=== PATIENT | male | born 1965 | race Caucasian/White ===

== ENCOUNTER 2020-10-19 13:19 | Outpatient (CLI) | payer OTHER ==
[2020-10-19 13:55] VITALS: BP 142/90
--- NOTE | 2020-10-19 13:55 | SLEEP CARE CONSULTATION ---
Information from patient questionnaire entered by Tanesha Guevara. I have reviewed and concur with the information entered by Tanesha Guevara. This document represents the service I personally performed and the decisions made by me, Marie Sseay ARNP. History of Present Illness Service Date and Time: 10/19/2020 1319 Reason for Visit: New patient Chief Complaint: reports: Unrefreshed sleep, Snoring, Frequent awakenings at night. denies: Observed pauses in breathing Date of Onset: 1 1/2 - 2 years Usual bedtime: 10-11 pm Time it takes to fall asleep: 15 minutes Snores at night: Yes Observed to quit breathing while asleep: No Sleeps alone due to snoring: No Number of times waking at night: 1-10 Reasons for waking at night: reports: Choking (only a couple times), Snoring, Gasping for air (only a couple times), Other (unknown reason) Toss, Turn, or Twitch while sleeping: No Recalls having dreams: Yes Usually gets out of bed at: 7 am Feels refreshed in the morning: No Morning headache: Yes (sometimes; resolves at 10am; 2 days a week) Sleepy or fatigued during the day: Yes Ever fallen asleep while driving: No Takes day naps: No Prior sleep studies: Yes Year and Where: 2018 - [place], [place] - incomplete Additional HPI information: I had the pleasure of seeing RACHELLE CARDOSO today regarding the possibility of him having a sleep disorder. His current complaints are frequent night awakenings, snoring and unrefreshed sleep. He will wake up feeling tired, have a headache, with mild nausea and just "not feeling good". He will awaken during the night for no apparent reason and then not be able to go back to sleep. He has woken himself with snoring. His had noted this as well but has not observed pauses in breathing while asleep. He has tried the Breathright strips to reduce snoring and he states it helps him to feel better the next day. He did have a home sleep study in the past but he did not sleep much that night. The company tried to set him up on a CPAP but he did not feel it was an accurate test and did not start therapy. His father has snores loudly and has a CPAP. 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 Patient is and lives in [place]. Have you smoked in the past 12 months: No Alcohol use: Yes Alcohol amount and frequency: 1-2 drinks about 5 days a week Caffeine use: Yes Caffeine amount and frequency: 2-3 cups of coffee a day Family History Family history of sleep disordered breathing: Yes Family Hx Sleep Apnea: Father: Snoring, Sleep apnea - Treated Allergies and Home Medications Drug allergies reviewed: Yes (NKDA) Home medication list reviewed: Yes Allergy and home medication list: Lisinopril 10 mg OTC Omeprazole 20 mg Review of Systems Cardiovascular: reports: high blood pressure Gastrointestinal: reports: heartburn, nausea Neurological: reports: fainting or unconsciousness Psychiatric: reports: anxiety Ear/Nose/Throat: denies: tonsillectomy Immunologic: reports: allergies to food or environment (seasonal) Physical Exam Blood Pressure: 142/90 Cuff size: wrist Heart Rate: 76 O2 Saturation: 98 Height: 5 ft 11.5 in Weight: 215 lb Body Mass Index: 29.5 BMI Classification: Overweight Neck circumference: 16.5 (inches) Mouth and throat: normal Soft palate: long Hard palate: normal Uvula: normal Uvula visualization: 100% Mallampati Class I Tongue: enlarged in size with teeth agarwal on lateral edges Tonsils: small Neck: normal w/o lymphadenopathy or thyromegaly Heart: regular rate and rhythm Lungs: clear bilaterally Impression and Plan 1. Suspected Obstructive Sleep Apnea-Hypopnea Syndrome, as suggested by a history of loud and irregular snoring, gasping or choking in sleep, morning headache, frequent awakening during the night, and unrefreshed sleep. Narrow oropharynx and obesity are common predisposing factors for obstructive sleep apnea-hypopnea syndrome. I recommend proceeding to polysomnography to confirm the diagnosis and to assess severity. If the patient has significant sleep disordered breathing, a manual CPAP titration study will also be performed to find the optimal treatment pressure. I informed the patient of what the sleep studies involve and after some discussion, obtained agreement to proceed. The pathophysiology of obstructive sleep apnea-hypopnea syndrome was discussed with the patient and health risks of cardiovascular and cerebrovascular disease if not treated. AAS brochure for obstructive sleep apnea-hypopnea syndrome given and reviewed. Risks of drowsy driving discussed in detail and patient advised to avoid long distance driving and to puller over at the first sign of drowsiness. Patient agreed to plan. * Schedule polysomnography +- manual CPAP titration study and return in 1-2 weeks after the study to discuss result and initiate therapy. * Avoid long distance driving or driving when feeling sleepy. * Avoid alcohol, sedative and muscle relaxant around bedtime. * Attempt to lose weight. * Review instructions provided by trained office staff on how to prepare for the sleep study. * Return for follow-up after sleep study completed. Counseling Topics: Weight loss health impact Visit Type: In Office Time Spent with Patient (minutes): 30 Provider Statement: I spent 100% of the Face to Face Visit with the patient with greater than 50% spent counseling the patient and coordination of care.
== END 2020-10-19 13:20 | disposition home or self-care (01) ==
LOC: SC 13:19
PROVIDERS: ATTEND Nurse Practitioner Family
DX: R06.83 Snoring (principal); R51.9 Headache, unspecified; G47.8 Other sleep disorders; E66.3 Overweight; Z68.29 Body mass index [BMI] 29.0-29.9, adult
CPT/HCPCS: 99203; 99212

== ENCOUNTER 2020-10-24 12:59 | Outpatient (CLI) | payer OTHER | END 2020-10-24 13:00 | disposition home or self-care (01) | LOC: SC 12:59 | PROVIDERS: ATTEND Nurse Practitioner Family | DX: G47.33 Obstructive sleep apnea (adult) (pediatric) (principal); E66.9 Obesity, unspecified; Z68.30 Body mass index [BMI] 30.0-30.9, adult | CPT/HCPCS: 95806 ==

== ENCOUNTER 2020-12-02 11:24 | Outpatient (CLI) | payer OTHER ==
[2020-12-02 12:02] LABS: CALCIUM 9.6 mg/dL (8.5-10.3); CREATININE 1.1 mg/dL (0.6-1.2); POTASSIUM 4.4 mmol/L (3.5-5.0)
== END 2020-12-02 11:25 | disposition home or self-care (01) ==
LOC: LAB 11:24
PROVIDERS: ATTEND Internal Medicine
DX: I10 Essential (primary) hypertension (principal)
CPT/HCPCS: 36415; 80048

== ENCOUNTER 2021-02-02 09:07 | Outpatient (CLI) | payer OTHER ==
[2021-02-02 09:38] LABS: CALCIUM 9.8 mg/dL (8.5-10.3); CREATININE 1.1 mg/dL (0.6-1.2); POTASSIUM 4.3 mmol/L (3.5-5.0)
[2021-02-03 11:36] LABS: HEPATITIS C ANTIBODY NON-REACTIVE (NON-REACTIVE)
== END 2021-02-02 09:08 | disposition home or self-care (01) ==
LOC: LAB 09:07
PROVIDERS: ATTEND Internal Medicine
DX: I10 Essential (primary) hypertension (principal); Z11.59 Encounter for screening for other viral diseases
CPT/HCPCS: 36415; 80048; 86803

== ENCOUNTER 2021-03-27 13:42 | Outpatient (CLI) | payer OTHER ==
--- NOTE | 2021-03-27 15:44 | XRAY Report ---
PROCEDURE: Finger(s) LT INDICATIONS: LACERATION OF L INDEX FINGER W/ DAMAGE TO NAIL TECHNIQUE: AP hand, 2 views of the second finger(s) acquired. COMPARISON: None FINDINGS: Bones: No fractures or dislocations. Second DIP joint osteoarthritic changes are seen with joint spa ce narrowing and subchondral sclerosis. No suspicious bony lesions. Soft tissues: No suspicious soft tissue calcifications. IMPRESSION: Second DIP joint osteoarthritis. No fracture or dislocation. No radiopaque foreign body. Reviewed by: Gibran Phma MD on 03/27/2021 3:43 PM PST Approved by: Gibran Pham MD on 03/27/2021 3:43 PM PST Station ID: [id number]
== END 2021-03-27 23:59 | disposition home or self-care (01) ==
LOC: DI.N 13:42
PROVIDERS: ATTEND Family Medicine
DX: S61.311A Laceration without foreign body of left index finger with damage to nail, initial encounter (principal); M19.042 Primary osteoarthritis, left hand

== ENCOUNTER 2021-05-24 08:00 | Outpatient (CLI) | payer OTHER | END 2021-05-24 23:59 | LOC: LAB.N 08:00 | PROVIDERS: ATTEND Family Medicine | DX: J02.9 Acute pharyngitis, unspecified (principal); R53.83 Other fatigue; Z20.822 Contact with and (suspected) exposure to COVID-19 ==

== ENCOUNTER 2021-11-07 17:28 | Outpatient (CLI) | payer OTHER ==
--- NOTE | 2021-11-08 09:46 | XRAY Report ---
PROCEDURE: Hip w/Pelvis 2-3V LT INDICATIONS: LEFT HIP PAIN TECHNIQUE: AP pelvis with lateral view(s) of the left hip(s). COMPARISON: None. FINDINGS: Bones: No fractures or dislocations. Symmetric appearing mild to moderate bilateral hip joint osteoa rthritic changes are seen with superior joint space narrowing and subchondral sclerosis. No evidence of avascular necrosis of femoral head. Pelvic ring appears intact. No suspicious bony lesions. Soft tissues: The visualized bowel gas pattern is normal. No suspicious soft tissue calcifications. IMPRESSION: Symmetric appearing mild to moderate bilateral hip joint osteoarthritis. No fracture or d islocation. No evidence of avascular necrosis. Reviewed by: Gibran Pham MD on 11/08/2021 9:45 AM PDT Approved by: Gibran Pham MD on 11/08/2021 9:45 AM PDT Station ID: [id number]
== END 2021-11-07 17:29 | disposition home or self-care (01) ==
LOC: DI 17:28
PROVIDERS: ATTEND Internal Medicine
DX: M16.0 Bilateral primary osteoarthritis of hip (principal)

== ENCOUNTER 2022-01-24 08:01 | Outpatient (CLI) | payer OTHER ==
[2022-01-24 08:38] LABS: CALCIUM 9.7 mg/dL (8.5-10.3); CREATININE 1.2 mg/dL (0.6-1.2); POTASSIUM 4.1 mmol/L (3.5-5.0)
== END 2022-01-24 08:02 | disposition home or self-care (01) ==
LOC: LAB 08:01
PROVIDERS: ATTEND Internal Medicine
DX: I10 Essential (primary) hypertension (principal)
CPT/HCPCS: 36415; 80048

== ENCOUNTER 2023-02-06 08:29 | Outpatient (CLI) | payer OTHER ==
[2023-02-06 09:02] LABS: ALBUMIN 4.7 g/dL (3.2-5.5); ALKALINE PHOSPHATASE 31 IU/L (42-121); ALT ALANINE AMINOTRANSFERASE 29 IU/L (10-60); AST ASPARTATE AMINOTRANSFERASE 20 IU/L (10-42); BILIRUBIN,TOTAL 0.5 mg/dL (0.2-1.0); BUN - BLOOD UREA NITROGEN 18 mg/dL (6-20); CALCIUM 9.8 mg/dL (8.5-10.3); CARBON DIOXIDE - CO2 27 mmol/L (21-32); CHLORIDE 105 mmol/L (101-111); CHOL/HDL RATIO 4.1 (<5.0); CHOLESTEROL 205 mg/dL; CREATININE 1.2 mg/dL (0.6-1.3); GFR - MDRD 62 (>89); GLUCOSE 105 mg/dL (74-104); HDL CHOLESTEROL 50 mg/dL; LDL CHOLESTEROL,CALCULATED 133 mg/dL; LDL/HDL RATIO 2.7 (<3.6); POTASSIUM 4.3 mmol/L (3.5-4.5); SODIUM 138 mmol/L (135-145); TRIGLYCERIDES 108 mg/dL (48-352); VLDL CHOLESTEROL 22 mg/dL
[2023-02-06 11:39] LABS: ESTIMATED AVERAGE GLUCOSE 103 mg/dL (70-100); HEMOGLOBIN A1c% 5.2 % (4.27-6.07)
== END 2023-02-06 08:30 | disposition home or self-care (01) ==
LOC: LAB 08:29
PROVIDERS: ATTEND Family Medicine
DX: I10 Essential (primary) hypertension (principal); E78.5 Hyperlipidemia, unspecified
CPT/HCPCS: 36415; 80053; 80061; 83036; 83721

== ENCOUNTER 2023-04-05 08:19 | Outpatient (CLI) | payer OTHER ==
--- NOTE | 2023-04-05 13:00 | MRI Report ---
PROCEDURE: LUMBAR SPINE WO INDICATIONS: SPINAL STENOSIS TECHNIQUE: Noncontrast sagittal T1 spin echo and T2 fast echo, sagittal STIR, axial T1 and T2 fast spin echo thr ough the lumbar spine. In cases with scoliosis, additional coronal T2 fast spin echo may be performe d. COMPARISON: None. FINDINGS: Image quality: Excellent. Alignment and Curvature: There is normal bony alignment. Bone Marrow: Marrow is of normal overall signal. No acute vertebral body compression fractures. Spinal Cord: Conus medullaris terminates at the L1-L2 level. Visualized cord demonstrates normal si gnal and size. Paraspinous Soft Tissues: No paravertebral masses. T12-L1: No canal stenosis or foraminal stenosis. L1-L2: Minimal disc bulge. Mild facet hypertrophy. No canal stenosis or foraminal stenosis. L2-L3: Minimal disc bulge. Facet hypertrophy. Mild canal stenosis. No significant foraminal stenos is. L3-L4: Short pedicles. Disc bulge. Facet hypertrophy. Mild canal stenosis. No significant foraminal stenosis. L4-L5: Disc bulge. Facet hypertrophy. Left foraminal annulus tear. Moderate central canal stenosis. Mild to moderate right foraminal narrowing. There is a focal small left foraminal disc extrusion whi ch impinges on the left L4 nerve root far laterally. Reference sagittal T2 image 14 of series 3 and a xial T2 image 37 of series 6. L5-S1: Chronic disc height loss. Posterior disc bulge and facet hypertrophy. No canal stenosis. Mil d to moderate right foraminal narrowing. Moderate left foraminal narrowing. IMPRESSION: 1. There is multilevel underlying facet arthropathy. 2. Canal stenosis is mild at L2-L3, mild at L3-L4, and moderate at L4-L5. 3. A small left foraminal disc extrusion at L4-L5 impinges on the left L4 nerve root far laterally. R ecommend correlation for presence or absence left L4 radicular symptoms. Reviewed by: Guicho Cabrera MD on 04/05/2023 12:59 PM PST Approved by: Giucho Cabrera MD on 04/05/2023 12:59 PM PST Station ID: [id number]
== END 2023-04-05 08:20 | disposition home or self-care (01) ==
LOC: DI 08:19
PROVIDERS: ATTEND Orthopaedic Surgery
DX: M48.061 Spinal stenosis, lumbar region without neurogenic claudication (principal); M47.816 Spondylosis without myelopathy or radiculopathy, lumbar region; M47.817 Spondylosis without myelopathy or radiculopathy, lumbosacral region; M48.07 Spinal stenosis, lumbosacral region; M51.26 Other intervertebral disc displacement, lumbar region